=== PATIENT | male | born 1950 | race Caucasian/White ===

== ENCOUNTER 2018-01-13 14:02 | Emergency (ER) | payer MEDICARE, OTHER ==
[~2018-01-13 14:02] MED LIST: AMLO-99 PO; FLUO-202; PNEU0.5D3 IM; PRAV20TA66 PO; PRED20TA6 PO; SIMV5TAB56; TAMS0.4C70 PO; WARF5TAB23 PO; WARF7.5T26; WARF7.5T26 PO
--- NOTE | 2018-01-13 14:17 | ER Report ---
History and Physical Time Seen By MD: 14:13 Hx. of Stated Complaint: PATIENT REPORTS FEELING VERY ANXIOUS AFTER HURTING L ARM, HAVING HARD TIME SLEEPING, AND HAS HX OF PERICARDIAL EFFUSION AND IS HAVING SIMILAR SYMPTOMS HPI/ROS CHIEF COMPLAINT: Left arm pain HISTORY OF PRESENT ILLNESS: This is a 67-year-old male who presents to the emergency department for left arm pain and shortness of breath. Patient states that last when he was working on the yard he became short of breath, he did hit his left arm as well while doing some yard work and up with a large bruise to the left arm. Patient states that the shortness of breath has since then resolved however he has had increased fatigue since then. Patient also states that he does have a history of aortic graft and aortic valve replacement in 2002, he has had one bout of a pericardial effusion that presented similarly , patient became very anxious and decided to come in for further evaluation. Patient is on Coumadin for his valve replacement, aortic graft, patient also has a pacemaker. Patient denies nausea, vomiting, aches, chills. Patient does have a headache, patient states that this is a fairly common headache for him he has been taking Excedrin Migraine he does understand that this has aspirin in it and can alter his INR. Patient states he had his INR then this morning and it was 3.1. REVIEW OF SYSTEMS: Constitutional: No fever, no chills. Eyes: No discharge. ENT: No sore throat. Cardiovascular: No chest pain, no palpitations. Respiratory: As above. Gastrointestinal: No abdominal pain, no vomiting. Genitourinary: No hematuria. Musculoskeletal: No back pain. Skin: As above. Neurological: As above. Allergies: Coded Allergies: No Known Drug Allergies (Unverified , 01/13/18) Home Meds Active Scripts Pravastatin Sodium (PRAVASTATIN SODIUM) 20 Mg Tablet, 1 TAB PO QDAY, #90 TAB Prov:BOGDAN JORDAN MD 07/22/17 Amlodipine Besylate (AMLODIPINE BESYLATE) 10 Mg Tablet, 1 TAB PO QDAY, #90 TAB 2 Refills Prov:BOGDAN JORDAN MD 07/22/17 Reported Medications Warfarin Sodium (WARFARIN SODIUM) 5 Mg Tablet, 10 MG PO SATURDAY,SATURDAY, TAB 08/30/17 Warfarin Sodium (WARFARIN SODIUM) 5 Mg Tablet, 7.5 MG PO QDAY, TAB 08/30/17 Tamsulosin Hcl (TAMSULOSIN HCL) 0.4 Mg Cap.er.24h, 0.4 MG PO QODAY, CAP 07/22/17 Past Medical/Surgical History Patient has a past medical and social history of aortic valve replacement, aortic replacement, umbilical hernia with repair, enlarged prostate, wears glasses, mole removals, drinks daily, basal cell carcinoma, pacemaker, foot surgery, dislocated elbow, right reconstruction, tonsillectomy. Reviewed Nurses Notes: Yes Hx Smoking: No Smoking Status: Never Smoker Hx Substance Use Disorder: No Hx Alcohol Use: Yes (6 pack daily) Constitutional Vital Sign - Last 24 Hours 01/13/18 01/13/18 01/13/18 01/13/18 14:08 14:09 14:32 15:02 Pulse 91 78 74 Resp 16 10 12 B/P (MAP) 172/101 (124) 172/101 Pulse Ox 92 94 90 01/13/18 01/13/18 01/13/18 01/13/18 15:11 15:34 15:39 16:00 Pulse 67 Resp 7 B/P (MAP) 137/76 (96) 161/87 (111) 132/79 (96) Pulse Ox 89 01/13/18 01/13/18 01/13/18 01/13/18 16:09 16:30 16:39 17:00 Pulse 69 69 Resp 9 11 B/P (MAP) 150/90 (110) 140/97 (111) Pulse Ox 91 91 Physical Exam General Appearance: The patient is alert, has no immediate need for airway protection and no signs of toxicity, tearful and anxious. Eyes: Pupils equal and round no pallor or injection. ENT, Mouth: Mucous membranes are moist. Respiratory: There are no retractions, lungs are clear to auscultation. Cardiovascular: Regular rate and rhythm, click from mechanical valve, no murmur , no rubs. Gastrointestinal: Abdomen is soft and non tender, no masses, bowel sounds normal. Neurological: Alert and oriented 4. Moving all extremities. Following all commands. No focal neuro deficits. Skin: Warm and dry, no rashes. There is a large bruise to the left arm starting at the bicep down to the palm of the left hand. The left forearm is taut, no numbness or tingling, pulses present. No cellulitis or erythema. Musculoskeletal: Neck is supple non tender. Extremities are nontender, nonswollen and have full range of motion. DIFFERENTIAL DIAGNOSIS: After history and physical exam differential diagnosis was considered for shortness of breath including but not limited to pulmonary infectious process, pericardial effusion, anxiety, COPD, asthma, pulmonary embolus and congestive heart failure. Medical Decision Making Data Points Result Diagram: 01/13/18 1435 01/13/18 1435 Laboratory Hematology Test 01/13/18 14:35 Red Blood Count 4.88 M/uL (4.00-5.60) Mean Corpuscular Volume 87.3 fL (80.0-96.0) Mean Corpuscular Hemoglobin 30.2 pg (26.0-33.0) Mean Corpuscular Hemoglobin Concent 34.5 g/dL (32.0-36.0) Red Cell Distribution Width 13.9 % (11.5-14.5) Mean Platelet Volume 8.4 fL (7.2-11.1) Neutrophils (%) (Auto) 58.3 % (39.4-72.5) Lymphocytes (%) (Auto) 26.8 % (17.6-49.6) Monocytes (%) (Auto) 11.6 % (4.1-12.4) Eosinophils (%) (Auto) 2.4 % (0.4-6.7) Basophils (%) (Auto) 0.9 % (0.3-1.4) Nucleated RBC Relative Count (auto) 0.1 /100WBC Neutrophils # (Auto) 3.5 K/uL (2.0-7.4) Lymphocytes # (Auto) 1.6 K/uL (1.3-3.6) Monocytes # (Auto) 0.7 K/uL (0.3-1.0) Eosinophils # (Auto) 0.1 K/uL (0.0-0.5) Basophils # (Auto) 0.1 K/uL (0.0-0.1) Nucleated RBC Absolute Count (auto) 0.01 K/uL Prothrombin Time 29.8 seconds (12.0-14.4) Prothromb Time International Ratio 2.72 Activated Partial Thromboplast Time 37 seconds (23-35) Sodium Level 133 mmol/L (137-145) Potassium Level 4.0 mmol/L (3.5-5.0) Chloride Level 99 mmol/L (98-107) Carbon Dioxide Level 23 mmol/L (22-30) Blood Urea Nitrogen 9 mg/dl (9-21) Creatinine 1.00 mg/dl (0.66-1.25) Glomerular Filtration Rate Calc > 60.0 Random Glucose 119 mg/dl (75-110) Calcium Level 8.9 mg/dl (8.4-10.2) Total Bilirubin 0.8 mg/dl (0.2-1.3) Aspartate Amino Transf (AST/SGOT) 31 U/L (0-35) Alanine Aminotransferase (ALT/SGPT) 23 U/L (0-56) Alkaline Phosphatase 60 U/L (0-126) Troponin I < 0.012 ng/ml Total Protein 7.7 gm/dl (6.3-8.2) Albumin 4.2 g/dl (3.5-5.0) Chemistry Test 01/13/18 14:35 White Blood Count 5.9 k/uL (4.5-11.0) Red Blood Count 4.88 M/uL (4.00-5.60) Hemoglobin 14.7 g/dL (14.0-18.0) Hematocrit 42.6 % (42.0-52.0) Mean Corpuscular Volume 87.3 fL (80.0-96.0) Mean Corpuscular Hemoglobin 30.2 pg (26.0-33.0) Mean Corpuscular Hemoglobin Concent 34.5 g/dL (32.0-36.0) Red Cell Distribution Width 13.9 % (11.5-14.5) Platelet Count 269 K/uL (150-450) Mean Platelet Volume 8.4 fL (7.2-11.1) Neutrophils (%) (Auto) 58.3 % (39.4-72.5) Lymphocytes (%) (Auto) 26.8 % (17.6-49.6) Monocytes (%) (Auto) 11.6 % (4.1-12.4) Eosinophils (%) (Auto) 2.4 % (0.4-6.7) Basophils (%) (Auto) 0.9 % (0.3-1.4) Nucleated RBC Relative Count (auto) 0.1 /100WBC Neutrophils # (Auto) 3.5 K/uL (2.0-7.4) Lymphocytes # (Auto) 1.6 K/uL (1.3-3.6) Monocytes # (Auto) 0.7 K/uL (0.3-1.0) Eosinophils # (Auto) 0.1 K/uL (0.0-0.5) Basophils # (Auto) 0.1 K/uL (0.0-0.1) Nucleated RBC Absolute Count (auto) 0.01 K/uL Prothrombin Time 29.8 seconds (12.0-14.4) Prothromb Time International Ratio 2.72 Activated Partial Thromboplast Time 37 seconds (23-35) Glomerular Filtration Rate Calc > 60.0 Calcium Level 8.9 mg/dl (8.4-10.2) Total Bilirubin 0.8 mg/dl (0.2-1.3) Aspartate Amino Transf (AST/SGOT) 31 U/L (0-35) Alanine Aminotransferase (ALT/SGPT) 23 U/L (0-56) Alkaline Phosphatase 60 U/L (0-126) Troponin I < 0.012 ng/ml Total Protein 7.7 gm/dl (6.3-8.2) Albumin 4.2 g/dl (3.5-5.0) Coagulation Test 01/13/18 14:35 Prothrombin Time 29.8 seconds Prothromb Time International Ratio 2.72 Activated Partial Thromboplast Time 37 seconds EKG/Imaging EKG Interpretation 12 lead EKG: EKG 1415. Rhythm: Ventricular paced, rate 83 BPM. [place]: normal QRS: normal ST segments: No ST depression or elevation identified. No significant changes from the 02/28/2013 EKG. Imaging CHEST W CONTRAST History: short of breath, hx aorta and valve replacement TECHNIQUE: Contiguous axial images were performed through the chest to the level of the adrenal glands following the administration of IV contrast. Coronal and sagittal reformatting was also performed. Dose Lowering Technique One of the following dose optimization techniques was utilized in the performance of this exam: Automated exposure control; adjustment of the mA and/ or kV according to the patient's size; or use of an iterative reconstruction technique. Specific details can be referenced in the facility's radiology CT exam operational policy. Contrast: 75 mL Isovue-370 COMPARISON STUDIES: none. Lungs / Pleura: There is a 2.9 cm bulla in the medial aspect of the right pulmonary apex with slight superior extension into the right side of the neck. Small amount of linear stranding is seen in the medial left lung base more likely scarring than an acute infiltrate. There is a small calcified granuloma in the left lower lobe Mediastinum/nodes: There Is a 1.3 x 0.9 cm pretracheal lymph node Heart and vessels: There is been a previous sternotomy.. Prosthetic aortic valve and cardiac pacemaker noted. There is a hypoattenuating cleft like area seen along the medial aspect of the ascending thoracic aorta. By history the patient has had a graft in the ascending thoracic aorta which would account for this finding Musculoskeletal / Body wall: Previous sternotomy. Spondylotic changes of the upper lumbar spine Upper abdomen: There is a vague 2.1 cm area of contrast-enhancement seen lateral aspect right lobe the liver. This could represent a perfusional variant although an enhancing mass is also included in the differential diagnosis Diverticulosis of the colon although no CT evidence of acute diverticulitis IMPRESSION: Postsurgical changes from aortic valve replacement and graft in the ascending thoracic aorta. 2.9 cm bulla medial aspect right pulmonary apex with slight superior extension to the right-sided the neck Small amount scarring medial left lung base There is a vague 2.1 cm area of contrast-enhancement lateral aspect right lobe of the liver. This could represent a perfusional variant although an enhancing mass is also included in the differential diagnosis. Report Dictated By: Marilia Warren MD at 01/13/2018 3:44 PM Report E-Signed By: Marilia Warren MD at 01/13/2018 4:16 PM EZEQUIELN:KATHLEEN ED Course/Re-evaluation Clinical Indication for ER IV: IV Access ED Course The patient was admitted to a room. A history and physical were obtained. Differential diagnoses were considered. An IV was started. A CBC, CMP, troponin were ordered, labs studies unremarkable, INR 2.72. Negative troponin. Ventricular paced EKG, unchanged from previous EKGs. Given the patient's symptomology and history did a CT of the chest showing no acute postsurgical changes from aortic valve replacement and graft in the ascending thoracic aorta. No pericardial effusion. I did review these results with the patient, patient is very relieved. I did tell the patient that the discomfort that he is feeling could be from working in the yard and the extensive physical labor. I also told him that we'll be better if he stopped taking the Excedrin migraine as this also has aspirin in it sees already on And takes aspirin in addition to the Plavix. I did tell him that the left arm bruising and swelling will improve it does take time to resolve. Encouraged patient to drink plenty of water and follow-up with his primary care provider in one week. The patient had no other questions or concerns at this time and was discharged home. Patient was feeling well upon discharge. Decision to Disposition Date: Jan 13, 2018 Decision to Disposition Time: 16:35 Depart Departure Latest Vital Signs Vital Signs Date Time Temp Pulse Resp B/P (MAP) Pulse Ox O2 Delivery O2 Flow Rate FiO2 01/13/18 17:00 140/97 (111) 01/13/18 16:39 69 11 91 Impression: Primary Impression: Left arm pain Additional Impression: Fatigue Condition: Improved Disposition: HOME OR SELF-CARE Referrals: ADY ORTEGA MD 1 Week Patient Instructions: Fatigue (ED) Additional Instructions: Drink plenty of water. Get plenty of rest. Try extra strength Tylenol, 2 tablets every 8 hours as needed for aches and pains. Avoid taking Excedrin Migraine. There was no sign of cardiac effusion, no signs of pneumonia, your cardiac markers look good, EKG unchanged from previous EKGs. Follow-up with your primary care provider within one week for reevaluation. Return to the emergency department for any other concerns or worsening symptoms. Problem Qualifiers Additional Impression: Fatigue Fatigue type: unspecified Qualified Codes: R53.83 - Other fatigue ATIF MORALESP-BC Jan 13, 2018 14:16
--- NOTE | 2018-01-13 14:41 | EKG ---
FACILITY[place] [facility] [place]IENT NAME: ROXANNA FRIAS : [id number] MR: [id number] V: [id number] EXAM DATE: ORDERING PHYSICIAN: ATIF MORALES TECHNOLOGIST: PATRICK Carter Reason : Blood Pressure : / mmHG Vent. Rate : 083 BPM Atrial Rate : 083 BPM P-R Int : 202 ms QRS Dur : 180 ms QT Int : 424 ms P-R-T Axes : 044 -78 090 degrees QTc Int : 498 ms Electronic ventricular pacemaker Confirmed by DIAZ AQUINO ([id number]) on 01/14/2018 6:01:46 AM Referred By: JASON Confirmed By:DIAZ AQUINO
[2018-01-13] MEDS ORDERED: IOPAMIDOL 76% 75 ML INFUS BTL 0 ML ONE (14:51)
[2018-01-13 14:56] LABS: PLATELET COUNT, AUTOMATED 269 K/uL (150-450)
[2018-01-13 15:19] LABS: INR 2.72
[2018-01-13] MEDS ORDERED: IOPAMIDOL 76% 75 ML INFUS BTL 75 ML ONE (15:27)
--- NOTE | 2018-01-13 16:20 | RADIOLOGY IMAGING REPORT ---
FACILITY: [facility] PATIENT NAME: Bryant Venegas : 1950 MR: [id number] V: [id number] EXAM DATE: ORDERING PHYSICIAN: ATIF MORALES TECHNOLOGIST: Location: [facility] Patient: Bryant Venegas : 1950 Visit/Account:[id number] Date of Sevice: 01/13/2018 CHEST W CONTRAST History: short of breath, hx aorta and valve replacement TECHNIQUE: Contiguous axial images were performed through the chest to the level of the adrenal gla nds following the administration of IV contrast. Coronal and sagittal reformatting was also perform ed. Dose Lowering Technique One of the following dose optimization techniques was utilized in the performance of this exam: Autom ated exposure control; adjustment of the mA and/or kV according to the patient's size; or use of an i terative reconstruction technique. Specific details can be referenced in the facility's radiology C T exam operational policy. Contrast: 75 mL Isovue-370 COMPARISON STUDIES: none. Lungs / Pleura: There is a 2.9 cm bulla in the medial aspect of the right pulmonary apex with sligh t superior extension into the right side of the neck. Small amount of linear stranding is seen in th e medial left lung base more likely scarring than an acute infiltrate. There is a small calcified gr anuloma in the left lower lobe Mediastinum/nodes: There Is a 1.3 x 0.9 cm pretracheal lymph node Heart and vessels: There is been a previous sternotomy.. Prosthetic aortic valve and cardiac pacema ker noted. There is a hypoattenuating cleft like area seen along the medial aspect of the ascending thoracic aorta. By history the patient has had a graft in the ascending thoracic aorta which would a ccount for this finding Musculoskeletal / Body wall: Previous sternotomy. Spondylotic changes of the upper lumbar spine Upper abdomen: There is a vague 2.1 cm area of contrast-enhancement seen lateral aspect right lobe the liver. This could represent a perfusional variant although an enhancing mass is also included in the differential diagnosis Diverticulosis of the colon although no CT evidence of acute diverticulitis IMPRESSION: Postsurgical changes from aortic valve replacement and graft in the ascending thoracic aorta. 2.9 cm bulla medial aspect right pulmonary apex with slight superior extension to the right-sided the neck Small amount scarring medial left lung base There is a vague 2.1 cm area of contrast-enhancement lateral aspect right lobe of the liver. This co uld represent a perfusional variant although an enhancing mass is also included in the differential d iagnosis. Report Dictated By: Marilia Warren MD at 01/13/2018 3:44 PM Report E-Signed By: Marilia Warren MD at 01/13/2018 4:16 PM WSN:[email or web address]
[2018-01-13 17:00] VITALS: BP 140/97
== END 2018-01-13 17:04 | disposition home or self-care (01) ==
LOC: ER 14:05
DX: S40.022A Contusion of left upper arm, initial encounter (principal); M79.602 Pain in left arm; R53.83 Other fatigue; Z79.01 Long term (current) use of anticoagulants; W22.8XXA Striking against or struck by other objects, initial encounter; Y93.H2 Activity, gardening and landscaping
CPT/HCPCS: 71260; 84484; 85025; 85610; 85730; 93005; 99284; Q9967; 82040; 82247; 82310; 82374; 82435; 82565; 82947; 84075; 84132; 84155; 84295; 84450; 84460; 84520